=== PATIENT | female | born 1980 | race Asian ===

== ENCOUNTER 2017-10-28 11:41 | Emergency (ER) | payer OTHER ==
[2017-10-28] MEDS: TETRACAINE 0.5% 4 ML OPH LEFT EYE (14:04)
[2017-10-28] MEDS: FLUORESCEIN STRIP LEFT EYE (14:04)
== END 2017-10-28 15:01 | disposition home or self-care (01) ==
LOC: FTE 11:41
DX: S05.02XA Injury of conjunctiva and corneal abrasion without foreign body, left eye, initial encounter (principal); W50.0XXA Accidental hit or strike by another person, initial encounter; Y92.9 Unspecified place or not applicable
CPT/HCPCS: 99283; Z7502

== ENCOUNTER 2018-07-13 15:27 | Emergency (ER) | payer OTHER ==
[2018-07-13] MEDS: FLUORESCEIN STRIP RIGHT EYE (16:37)
[2018-07-13] MEDS: TETRACAINE 0.5% 4 ML OPH LEFT EYE (16:37)
== END 2018-07-13 17:41 | disposition home or self-care (01) ==
LOC: FTE 15:27
DX: S05.92XA Unspecified injury of left eye and orbit, initial encounter (principal); X58.XXXA Exposure to other specified factors, initial encounter; Y92.9 Unspecified place or not applicable
CPT/HCPCS: 99283; Z7502